=== PATIENT | female | born 1970 | race Caucasian/White ===

== ENCOUNTER 2016-11-11 08:06 | Day surgery (SDC) | payer MEDICAID ==
[2016-11-11] MEDS ORDERED: Lactated Ringers 1,000 ML IV SCH (08:15)
[2016-11-11] MEDS ORDERED: Sodium Chloride 0.9% 10 ML Syringe FLUSH PRN (08:15)
[2016-11-11] MEDS ORDERED: Lidocaine 2% 100 MG/5 ML Syringe IVPUSH ONE (09:50)
[2016-11-11] MEDS ORDERED: Propofol 200 MG/20 ML SDV IV ONE (09:50)
[2016-11-11] MEDS ORDERED: Midazolam 1 MG/ML 2 ML SDV IV ONE (09:50)
--- NOTE | 2016-11-11 10:27 | PCM.OPNOTE ---
- General Post-Op/Procedure Note Date of Surgery/Procedure: 11/11/16 Operative Procedure(s): egd with bx. c scope Findings: anastomtic ullcer Pre Op Diagnosis: abd pain Post-Op Diagnosis: nl c scope. anastomotic ulcer s/p gastric bypass Anesthesia Technique: MAC Primary Surgeon: Cody Pacheco Anesthesia Provider: Juve Lowery Stump Pathology: ulcer edge Complications: None Condition: Good Free Text/Narrative:: see dictation
[2016-11-11 11:30] VITALS: BP 118/81
--- NOTE | 2016-11-11 15:22 | OR ---
DATE OF OPERATION: 11/11/2016 SURGEON: Cody Pacheco MD PROCEDURE PERFORMED: EGD with cold forceps biopsy and colonoscopy. PREOPERATIVE DIAGNOSIS: Generalized abdominal pain. POSTOPERATIVE DIAGNOSIS: Ulceration on the margin of the gastric pouch with the jejunum. Normal colonoscopy. INDICATIONS FOR PROCEDURE: This is a 46-year-old white female who presents with some complaints of abdominal pain. CT scan was essentially unremarkable. She was offered and accepted EGD and colonoscope. DESCRIPTION OF PROCEDURE: After an excellent IV sedation was administered, the bite block was inserted. The flexible endoscope was passed without difficulty down the patient's esophagus and into the gastric pouch. The scope was then advanced down the Tree limb. The following findings were noted. The limb itself was essentially unremarkable. Along the anastomosis of the pouch, there were some areas of what appeared to be ulceration, and these were biopsied. The gastric pouch, though large, was essentially unremarkable. The esophagus was unremarkable. The gastric pouch was deflated and scope was removed. Our attention was then turned to the colon. Digital rectal exam was performed. No marked abnormality was noted. Flexible colonoscope was inserted and advanced to the cecum without difficulty. The prep was excellent. The following findings were noted. Ascending colon, unremarkable. Transverse colon, unremarkable. Descending colon, unremarkable. Sigmoid and rectum, unremarkable. Colon was deflated as the scope was removed. The patient tolerated the procedure well and was taken to recovery room in good condition. /[id number] /JESL
== END 2016-11-11 11:14 | disposition home or self-care (01) ==
LOC: FB.SDS 08:06
PROVIDERS: ATTEND Surgery
DX: K29.00 Acute gastritis without bleeding (principal); K29.50 Unspecified chronic gastritis without bleeding; E03.9 Hypothyroidism, unspecified; E66.01 Morbid (severe) obesity due to excess calories; F32.9 Major depressive disorder, single episode, unspecified; D62 Acute posthemorrhagic anemia; Z98.84 Bariatric surgery status; Z90.710 Acquired absence of both cervix and uterus; Z79.899 Other long term (current) drug therapy; Z90.49 Acquired absence of other specified parts of digestive tract; Z98.890 Other specified postprocedural states; Z87.891 Personal history of nicotine dependence
CPT/HCPCS: 43239; 45378; 88305; 88342; J2250; J2704; J7120

== ENCOUNTER 2017-02-16 07:37 | Inpatient (IN) | payer MEDICAID ==
[2017-02-16] MEDS: Lactated Ringers 1,000 ML IV SCH ×2 (08:51→16:17)
[2017-02-16] MEDS ORDERED: cefOXitin 2 GM in Sodium Chloride 0.9% 100 ML IV ONE (09:00)
[2017-02-16] MEDS ORDERED: Glycopyrrolate 0.2 MG/ML 5 ML MDV IV ONE (09:30)
[2017-02-16] MEDS ORDERED: Propofol 200 MG/20 ML SDV IV ONE (09:30)
[2017-02-16] MEDS ORDERED: Midazolam 1 MG/ML 2 ML SDV IV ONE (09:30)
[2017-02-16] MEDS ORDERED: Ketorolac 30 MG/ML SDV IVPUSH ONE (09:30)
[2017-02-16] MEDS ORDERED: Lactated Ringers 1,000 ML IV ONE (09:30)
[2017-02-16] MEDS ORDERED: hydrOXYzine HCl 50 MG/ML SDV IM ONE (09:30)
[2017-02-16] MEDS ORDERED: diphenhydrAMINE 50 MG/ML SDV IV ONE (09:30)
[2017-02-16] MEDS ORDERED: Rocuronium 50 MG/5 ML Vial IV ONE (09:30)
[2017-02-16] MEDS ORDERED: fentaNYL 100 MCG/2 ML SDV IV ONE (09:30)
[2017-02-16] MEDS ORDERED: Succinylcholine 200 MG/10 ML MDV IV ONE (09:30)
[2017-02-16] MEDS ORDERED: Morphine 10 MG/ML Syringe IVPUSH ONE (09:30)
[2017-02-16] MEDS ORDERED: Neostigmine Methylsulfate 10 MG/10 ML MDV IVPUSH ONE (09:30)
[2017-02-16] MEDS ORDERED: ePHEDrine 50 MG/ML SDV IV ONE (09:30)
[2017-02-16] MEDS ORDERED: Dexamethasone 4 MG/ML 5 ML MDV IVPUSH ONE (09:30)
[2017-02-16] MEDS ORDERED: Ondansetron 4 MG/2 ML SDV IVPUSH ONE (09:30)
[2017-02-16] MEDS ORDERED: Albuterol 8 GM Inhaler INH ONE (09:30)
[2017-02-16] MEDS ORDERED: Bupivacaine 0.5% 30 ML SDV INJECT ONE (09:51)
[2017-02-16] MEDS ORDERED: Lidocaine 1% with EPINEPHrine 1:100,000 20 ML MDV INJECT ONE (09:51)
[2017-02-16] MEDS ORDERED: Ondansetron 4 MG/2 ML SDV IVPUSH PRN (12:12)
--- NOTE | 2017-02-16 12:23 | PCM.OPNOTE ---
- General Post-Op/Procedure Note Date of Surgery/Procedure: 02/16/17 Operative Procedure(s): lap cholecystectomy with conversion to open Findings: gallbladder remanent. flow of dye into the biliary tree. Pre Op Diagnosis: gallstones gallbladder remanent Post-Op Diagnosis: Same Anesthesia Technique: General ET Tube, Local (8 ml 1 % lido with epi/0.5% buvipicaine) Primary Surgeon: Cody Pacheco Anesthesia Provider: Ilana Pierce Pathology: gallbladder remnant EBL in mLs: 150 Complications: None Condition: Good Free Text/Narrative:: see dictation
[2017-02-16] MEDS ORDERED: Naloxone 0.4 MG/ML SDV IVPUSH PRN ×2 (12:26→12:32)
[2017-02-16] MEDS ORDERED: Promethazine 25 MG/ML SDV IV PRN (12:30)
[2017-02-16] MEDS: Morphine 2 MG/ML Syringe IVPUSH PRN ×2 (12:38→12:45)
[2017-02-16] MEDS: Morphine PF 30 MG/30 ML PCA Vial IV SCH ×2 (13:56→23:53)
--- NOTE | 2017-02-16 15:09 | CR ---
INDICATION: Laparoscopic cholecystectomy structure check. OPERATIVE CHOLANGIOGRAM: 2.5 minutes C-arm fluoroscopy time were utilized in OR for ORC. Nine C-arm fluoroscopic images of the common bile duct and intrahepatic ducts were obtained after injection of contrast in the cystic duct. There is noted flow into the duodenum. No definite filling defects are identified. IMPRESSION: ORC demonstrates dilated biliary tree and common bile duct with flow into the duodenum and no definite filling defects. Findings were given in OR to Dr. Pacheco in person. BETITO
--- NOTE | 2017-02-16 18:07 | PCM.SN ---
- Free Text/Narrative Note: Post op check no complaints. good pain control. hungry lungs cta heart rrr abd soft hypoactive bowel sounds. unremarkable exam dos.
[2017-02-17] MEDS: Lactated Ringers 1,000 ML IV SCH ×2 (00:14→08:23)
[2017-02-17] MEDS: Morphine PF 30 MG/30 ML PCA Vial IV SCH ×2 (10:48→21:04)
--- NOTE | 2017-02-17 11:38 | PCM.SURGPN ---
- General Info Date of Service: 02/17/17 POD#: 1 Functional Status: Reports: Pain Controlled - Review of Systems Pulmonary: Reports: No Symptoms Cardiovascular: Reports: No Symptoms Gastrointestinal: Reports: Abdominal Pain - Patient Data Vitals - Most Recent: Last Vital Signs Temp 36.4 C 02/17/17 07:47 Pulse 61 02/17/17 07:47 Resp 18 02/17/17 07:47 BP 98/68 02/17/17 07:47 Pulse Ox 98 02/17/17 07:47 Weight - Most Recent: 91.172 kg I&O - Last 24 Hours: Intake & Output 02/16/17 02/17/17 02/17/17 22:59 06:59 14:59 Intake Total 1044 Output Total 700 450 Balance 344 -450 Lab Results Last 24 Hrs: Laboratory Results - last 24 hr 02/17/17 02/17/17 Range/Units 06:25 06:25 WBC 11.7 (4.5-12.0) X10-3/uL RBC 4.64 (3.23-5.20) x10(6)uL Hgb 11.9 (11.5-15.5) g/dL Hct 36.7 (30.0-51.3) % MCV 79.0 L (80-96) fL MCH 25.6 L (27.7-33.6) pg MCHC 32.4 (32.2-35.4) g/dL RDW 23.7 H (11.5-15.5) % Plt Count 197 (125-369) X10(3)uL MPV 10.0 (7.4-10.4) fL Neut % (Auto) 74.7 (46-82) % Lymph % (Auto) 14.1 (13-37) % [place] % (Auto) 7.6 (4-12) % Eos % (Auto) 1 (1.0-5.0) % Baso % (Auto) 3 H (0-2) % Neut # (Auto) 8.7 H (1.6-8.3) # Lymph # (Auto) 1.7 (0.6-5.0) # [place] # (Auto) 0.9 (0.0-1.3) # Eos # (Auto) 0.1 (0.0-0.8) # Baso # (Auto) 0.3 H (0.0-0.2) # Sodium 139 (135-145) mmol/L Potassium 3.7 (3.5-5.3) mmol/L Chloride 107 (100-110) mmol/L Carbon Dioxide 26 (23-29) mmol/L BUN 8 (5-20) mg/dL Creatinine 0.5 L (0.6-1.3) mg/dL Est Cr Clr Drug Dosing 204.50 mL/min Estimated GFR (MDRD) > 60 (>60) BUN/Creatinine Ratio 16.0 (9-20) Glucose 100 (80-116) mg/dL Calcium 8.4 L (8.6-10.2) mg/dL Total Bilirubin 0.5 (0.1-1.3) mg/dL AST 67 H (5-27) IU/L ALT 61 H (14-26) IU/L Alkaline Phosphatase 44 L (56-112) IU/L Total Protein 6.3 (6.0-8.0) g/dL Albumin 3.2 L (3.5-5.2) g/dL Globulin 3.1 g/dL Albumin/Globulin Ratio 1.0 Med Orders - Current: Current Medications Lactated Ringer's (Ringers, Lactated) 1,000 mls @ 125 mls/hr IV ASDIRECTED [facility] Last Admin: 02/17/17 08:23 Dose: 125 mls/hr Morphine Sulfate (Morphine Commercial Fisherman 30 Mg In 30 Ml) 30 mg IV ASDIRECTED [facility] PRN Reason: Protocol Last Admin: 02/17/17 10:48 Dose: 30 mg Naloxone HCl (Narcan) 0.4 mg IVPUSH Q2M PRN PRN Reason: Respiratory Distress Ondansetron HCl (Zofran) 4 mg IVPUSH Q6H PRN PRN Reason: Nausea/Vomiting Discontinued Medications Albuterol (Ventolin Hfa) 8 gm INH .STK-MED ONE Stop: 02/16/17 09:31 Bupivacaine HCl (Marcaine 0.5%) 8 ml INJECT .STK-MED ONE Stop: 02/16/17 09:52 Last Admin: 02/16/17 09:51 Dose: 8 ml Dexamethasone (Dexamethasone) 10 mg IVPUSH .STK-MED ONE Stop: 02/16/17 09:31 Diphenhydramine HCl (Benadryl) 12.5 mg IV .STK-MED ONE Stop: 02/16/17 09:31 Ephedrine Sulfate (Ephedrine Sulfate) 30 mg IV .STK-MED ONE Stop: 02/16/17 09:31 Fentanyl (Sublimaze) 300 mcg IV .STK-MED ONE Stop: 02/16/17 09:31 Glycopyrrolate (Robinul) 0.4 mg IV .STK-MED ONE Stop: 02/16/17 09:31 Hydroxyzine HCl (Vistaril) 50 mg IM .STK-MED ONE Stop: 02/16/17 09:31 Cefoxitin Sodium 2 gm/ Sodium (Chloride) 100 mls @ 200 mls/hr IV ONETIME ONE Stop: 02/16/17 09:29 Last Admin: 02/16/17 08:55 Dose: 200 mls/hr Lactated Ringer's (Ringers, Lactated) 1,000 mls @ as directed IV .STK-MED ONE Stop: 02/16/17 09:31 Ketorolac Tromethamine (Toradol) 30 mg IVPUSH .STK-MED ONE Stop: 02/16/17 09:31 Lidocaine/Epinephrine (Xylocaine 1% With Epinephrine 1:100,000) 8 ml INJECT .STK-MED ONE Stop: 02/16/17 09:52 Last Admin: 02/16/17 09:51 Dose: 8 ml Midazolam HCl (Versed 1 Mg/Ml) 4 mg IV .STK-MED ONE Stop: 02/16/17 09:31 Morphine Sulfate (Morphine) 2 mg IVPUSH Q3M PRN PRN Reason: Abdominal Pain Last Admin: 02/16/17 12:45 Dose: 2 mg Morphine Sulfate (Morphine) 10 mg IVPUSH .STK-MED ONE Stop: 02/16/17 09:31 Neostigmine Methylsulfate (Neostigmine Methylsulfate) 3 mg IVPUSH .STK-MED ONE Stop: 02/16/17 09:31 Ondansetron HCl (Zofran) 4 mg IVPUSH .STK-MED ONE Stop: 02/16/17 09:31 Promethazine HCl (Phenergan) 12.5 mg IV Q4H PRN PRN Reason: Nausea/Vomiting Propofol (Diprivan 20 Ml) 200 mg IV .STK-MED ONE Stop: 02/16/17 09:31 Rocuronium [place] (Zemuron) 90 mg IV .STK-MED ONE Stop: 02/16/17 09:31 Succinylcholine Chloride (Quelicin) 100 mg IV .STK-MED ONE Stop: 02/16/17 09:31 - Exam Wound/Incisions: Dressing Dry and Intact Lungs: Clear to Auscultation, Normal Respiratory Effort Cardiovascular: Regular Rate, Regular Rhythm GI/Abdominal Exam: Normal Bowel Sounds, Soft, Tender - Problem List & Annotations (1) S/P cholecystectomy SNOMED Code(s): 481227591, 184128536 Code(s): Z90.49 - ACQUIRED ABSENCE OF OTHER SPECIFIED PARTS OF DIGESTIVE TRACT Status: Acute Current Visit: Yes - Problem List Review Problem List Initiated/Reviewed/Updated: Yes - My Orders Last 24 Hours: Active Orders 24 hr Category Date Time Status Ambulate [RC] Q4HPRN Care 02/16/17 12:13 Active Cardiac Monitoring [RC] 08,16,00 Care 02/16/17 12:32 Active Communication Order [RC] STAT Care 02/16/17 12:32 Active Insert [place]imes Catheter [Insert Urinary Catheter] [OM.PC] Care 02/16/17 18:45 Ordered Q24H Intake and Output [RC] ,,22 Care 02/16/17 12:13 Active Notify Provider Intake and Out [RC] ,, Care 02/16/17 12:13 Active Notify Provider Vital Signs [RC] PRN Care 02/16/17 12:13 Active Notify Provider [RC] PRN Care 02/16/17 12:32 Active Oxygen Therapy [RC] PRN Care 02/16/17 12:12 Active CHAIN MACHINE OPERATOR Record [RC] ,14,22 Care 02/16/17 12:32 Active Pulse Oximetry [RC] CONTINUOUS Care 02/16/17 12:32 Active RT Incentive Spirometry [RC] Q2HWA Care 02/16/17 12:12 Active Urinary Catheter Assessment [RC] QSHIFT Care 02/16/17 18:39 Active Vital Signs [RC] 08,12,16,20,00,04 Care 02/16/17 12:12 Active Morphine PF [Morphine CHAIN MACHINE OPERATOR 30 MG in 30 ML] Med 02/16/17 12:15 Active 30 mg IV ASDIRECTED Naloxone [Narcan] Med 02/16/17 12:32 Active 0.4 mg IVPUSH Q2M PRN Ondansetron [Zofran] Med 02/16/17 12:12 Active 4 mg IVPUSH Q6H PRN Medication Discontinuation Instructions [OM.PC] Stat Oth 02/16/17 12:26 Ordered Medication Discontinuation Instructions [OM.PC] Stat Ot 02/16/17 12:32 Ordered Medication Orders Lactated Ringer's (Ringers, Lactated) 1,000 mls @ 125 mls/hr IV ASDIRECTED [facility] Last Admin: 02/17/17 08:23 Dose: 125 mls/hr Infusion: 02/17/17 08:14 Dose: 125 mls/hr Admin: 02/17/17 00:14 Dose: 125 mls/hr Infusion: 02/17/17 00:14 Dose: 125 mls/hr Admin: 02/16/17 16:17 Dose: 125 mls/hr Infusion: 02/16/17 16:17 Dose: 125 mls/hr Admin: 02/16/17 08:51 Dose: 125 mls/hr Morphine Sulfate (Morphine Commercial Fisherman 30 Mg In 30 Ml) 30 mg IV ASDIRECTED [facility] PRN Reason: Protocol Last Admin: 02/17/17 10:48 Dose: 30 mg Admin: 02/16/17 23:53 Dose: 30 mg Admin: 02/16/17 13:56 Dose: 30 mg Naloxone HCl (Narcan) 0.4 mg IVPUSH Q2M PRN PRN Reason: Respiratory Distress Ondansetron HCl (Zofran) 4 mg IVPUSH Q6H PRN PRN Reason: Nausea/Vomiting - Assessment Assessment (Free Text/Narrative):: pod #1 - Plan Plan (Free Text/Narrative):: will d/c tele clear liquid diet d/c foleyl
[2017-02-17] MEDS ORDERED: CLINDAMYCIN PHOSPHATE TOP SCH (17:00)
[2017-02-17] MEDS: Sucralfate 1 GM Tab PO SCH ×2 (17:38→20:41)
[2017-02-17] MEDS: LORazepam 0.5 MG Tab PO SCH (20:41)
[2017-02-18] MEDS: Lactated Ringers 1,000 ML IV SCH (00:05)
[2017-02-18] MEDS ORDERED: Pantoprazole 40 MG Tab.CR PO SCH (07:30)
[2017-02-18] MEDS ORDERED: Levothyroxine 150 MCG Tab PO SCH (07:30)
[2017-02-18] MEDS ORDERED: Cyanocobalamin (Vitamin B12) 1,000 MCG Tab PO SCH (09:00)
[2017-02-18] MEDS ORDERED: Fluconazole 150 MG Tab PO SCH (09:00)
[2017-02-18] MEDS: Loratadine 10 MG Tab PO SCH (09:19)
[2017-02-18] MEDS: Sucralfate 1 GM Tab PO SCH ×4 (09:19→20:27)
[2017-02-18] MEDS: Sertraline 100 MG Tab PO SCH (09:20)
--- NOTE | 2017-02-18 09:39 | PCM.SURGPN ---
- General Info Date of Service: 02/18/17 POD#: 2 Functional Status: Reports: Pain Controlled, Tolerating Diet, Ambulating, Urinating - Review of Systems HEENT: Reports: No Symptoms Pulmonary: Reports: No Symptoms Cardiovascular: Reports: No Symptoms Gastrointestinal: Reports: Abdominal Pain, Flatus - Patient Data Vitals - Most Recent: Last Vital Signs Temp 36.8 C 02/18/17 07:59 Pulse 53 L 02/18/17 07:59 Resp 18 02/18/17 07:59 BP 116/74 02/18/17 07:59 Pulse Ox 93 L 02/18/17 07:59 Weight - Most Recent: 91.172 kg I&O - Last 24 Hours: Intake & Output 02/17/17 02/18/17 02/18/17 22:59 06:59 14:59 Intake Total 521 673 Output Total 800 850 Balance -279 -177 Med Orders - Current: Current Medications Cyanocobalamin (Vitamin B12) 1,000 mcg PO DAILY [facility] Ergocalciferol (Vitamin D2) 50,000 units PO Mo [facility] Hydroxyzine Pamoate (Vistaril) 50 mg PO BID PRN PRN Reason: ITCHING Lactated Ringer's (Ringers, Lactated) 1,000 mls @ 50 mls/hr IV ASDIRECTED [facility] Last Admin: 02/18/17 00:05 Dose: 50 mls/hr Levothyroxine Sodium (Levothyroxine) 150 mcg PO DAILY@0600 [facility] Loratadine (Claritin) 10 mg PO DAILY [facility] Last Admin: 02/18/17 09:19 Dose: 10 mg Lorazepam (Ativan) 0.5 mg PO BEDTIME [facility] Last Admin: 02/17/17 20:41 Dose: 0.5 mg Morphine Sulfate (Morphine Dental Nurse 30 Mg In 30 Ml) 30 mg IV ASDIRECTED [facility] PRN Reason: Protocol Last Admin: 02/17/17 21:04 Dose: 30 mg Naloxone HCl (Narcan) 0.4 mg IVPUSH Q2M PRN PRN Reason: Respiratory Distress Ondansetron HCl (Zofran) 4 mg IVPUSH Q6H PRN PRN Reason: Nausea/Vomiting Pantoprazole Sodium (Protonix) 40 mg PO DAILY@0600 [facility] Sertraline HCl (Zoloft) 100 mg PO DAILY [facility] Last Admin: 02/18/17 09:20 Dose: 100 mg Sucralfate (Carafate) 1 gm PO QIDACANDBED [facility] Last Admin: 02/18/17 09:19 Dose: 1 gm Discontinued Medications Albuterol (Ventolin Hfa) 8 gm INH .STK-MED ONE Stop: 02/16/17 09:31 Bupivacaine HCl (Marcaine 0.5%) 8 ml INJECT .STK-MED ONE Stop: 02/16/17 09:52 Last Admin: 02/16/17 09:51 Dose: 8 ml Dexamethasone (Dexamethasone) 10 mg IVPUSH .STK-MED ONE Stop: 02/16/17 09:31 Diphenhydramine HCl (Benadryl) 12.5 mg IV .STK-MED ONE Stop: 02/16/17 09:31 Ephedrine Sulfate (Ephedrine Sulfate) 30 mg IV .STK-MED ONE Stop: 02/16/17 09:31 Fentanyl (Sublimaze) 300 mcg IV .STK-MED ONE Stop: 02/16/17 09:31 Fluconazole (Diflucan) 150 mg PO DAILY [facility] Glycopyrrolate (Robinul) 0.4 mg IV .STK-MED ONE Stop: 02/16/17 09:31 Hydroxyzine HCl (Vistaril) 50 mg IM .STK-MED ONE Stop: 02/16/17 09:31 Hydroxyzine Pamoate (Vistaril) 50 mg PO Q6H [facility] Last Admin: 02/18/17 04:21 Dose: 50 mg Cefoxitin Sodium 2 gm/ Sodium (Chloride) 100 mls @ 200 mls/hr IV ONETIME ONE Stop: 02/16/17 09:29 Last Admin: 02/16/17 08:55 Dose: 200 mls/hr Lactated Ringer's (Ringers, Lactated) 1,000 mls @ as directed IV .STK-MED ONE Stop: 02/16/17 09:31 Ketorolac Tromethamine (Toradol) 30 mg IVPUSH .STK-MED ONE Stop: 02/16/17 09:31 Levothyroxine Sodium (Levothyroxine) 150 mcg PO ACBREAKFAST [facility] Last Admin: 02/18/17 07:31 Dose: 150 mcg Lidocaine/Epinephrine (Xylocaine 1% With Epinephrine 1:100,000) 8 ml INJECT .STK-MED ONE Stop: 02/16/17 09:52 Last Admin: 02/16/17 09:51 Dose: 8 ml Midazolam HCl (Versed 1 Mg/Ml) 4 mg IV .STK-MED ONE Stop: 02/16/17 09:31 Morphine Sulfate (Morphine) 2 mg IVPUSH Q3M PRN PRN Reason: Abdominal Pain Last Admin: 02/16/17 12:45 Dose: 2 mg Morphine Sulfate (Morphine) 10 mg IVPUSH .STK-MED ONE Stop: 02/16/17 09:31 Neostigmine Methylsulfate (Neostigmine Methylsulfate) 3 mg IVPUSH .STK-MED ONE Stop: 02/16/17 09:31 Non-Formulary Medication (Clindamycin Phosphate [Cleocin T 1% Gel]) 1 applic TOP ASDIRECTED [facility] Ondansetron HCl (Zofran) 4 mg IVPUSH .STK-MED ONE Stop: 02/16/17 09:31 Pantoprazole Sodium (Protonix) 40 mg PO ACBREAKFAST [facility] Last Admin: 02/18/17 07:31 Dose: 40 mg Promethazine HCl (Phenergan) 12.5 mg IV Q4H PRN PRN Reason: Nausea/Vomiting Propofol (Diprivan 20 Ml) 200 mg IV .STK-MED ONE Stop: 02/16/17 09:31 Rocuronium [place] (Zemuron) 90 mg IV .STK-MED ONE Stop: 02/16/17 09:31 Succinylcholine Chloride (Quelicin) 100 mg IV .STK-MED ONE Stop: 02/16/17 09:31 Sucralfate (Carafate) 1 gm PO QID [facility] Last Admin: 02/17/17 20:41 Dose: 1 gm - Exam Wound/Incisions: Healing Well, Dressing Dry and Intact, No Drainage. No: Erythema General: Alert, Oriented Lungs: Clear to Auscultation, Normal Respiratory Effort Cardiovascular: Regular Rate, Regular Rhythm GI/Abdominal Exam: Normal Bowel Sounds, Soft, Non-Tender Skin: Warm, Dry, Intact - Problem List & Annotations (1) S/P cholecystectomy SNOMED Code(s): 593231090, [id number] Code(s): Z90.49 - ACQUIRED ABSENCE OF OTHER SPECIFIED PARTS OF DIGESTIVE TRACT Status: Acute Current Visit: Yes - Problem List Review Problem List Initiated/Reviewed/Updated: Yes - My Orders Last 24 Hours: Active Orders 24 hr Category Date Time Status Full Liquid Diet [DIET] Diet 02/17/17 Dinner Active VITAMIN B12 [CHEM] Routine Lab 02/18/17 09:27 Received Cyanocobalamin (Vitamin B12) [Vitamin B12] Med 02/18/17 09:00 Hold 1,000 mcg PO DAILY Ergocalciferol (Vitamin D2) [Vitamin D2] Med 02/20/17 09:00 Active 50,000 units PO Mo LORazepam [Ativan] Med 02/17/17 21:00 Active 0.5 mg PO BEDTIME Levothyroxine Med 02/19/17 06:00 Active 150 mcg PO DAILY@0600 Loratadine [Claritin] Med 02/18/17 09:00 Active 10 mg PO DAILY Pantoprazole [ProTONIX] Med 02/19/17 06:00 Active 40 mg PO DAILY@0600 Sertraline [Zoloft] Med 02/18/17 09:00 Active 100 mg PO DAILY Sucralfate [Carafate] Med 02/18/17 08:20 Active 1 gm PO QIDACANDBED hydrOXYzine Pamoate [Vistaril] Med 02/18/17 09:22 Active 50 mg PO BID PRN Medication Orders Cyanocobalamin (Vitamin B12) 1,000 mcg PO DAILY [facility] Ergocalciferol (Vitamin D2) 50,000 units PO Mo [facility] Hydroxyzine Pamoate (Vistaril) 50 mg PO BID PRN PRN Reason: ITCHING Lactated Ringer's (Ringers, Lactated) 1,000 mls @ 50 mls/hr IV ASDIRECTED [facility] Last Admin: 02/18/17 00:05 Dose: 50 mls/hr Infusion: 02/17/17 22:58 Dose: 50 mls/hr Infusion: 02/17/17 12:00 Dose: 50 mls/hr Admin: 02/17/17 08:23 Dose: 125 mls/hr Infusion: 02/17/17 08:14 Dose: 125 mls/hr Admin: 02/17/17 00:14 Dose: 125 mls/hr Infusion: 02/17/17 00:14 Dose: 125 mls/hr Admin: 02/16/17 16:17 Dose: 125 mls/hr Infusion: 02/16/17 16:17 Dose: 125 mls/hr Admin: 02/16/17 08:51 Dose: 125 mls/hr Levothyroxine Sodium (Levothyroxine) 150 mcg PO DAILY@0600 [facility] Loratadine (Claritin) 10 mg PO DAILY [facility] Last Admin: 02/18/17 09:19 Dose: 10 mg Lorazepam (Ativan) 0.5 mg PO BEDTIME [facility] Last Admin: 02/17/17 20:41 Dose: 0.5 mg Morphine Sulfate (Morphine Dental Nurse 30 Mg In 30 Ml) 30 mg IV ASDIRECTED [facility] PRN Reason: Protocol Last Admin: 02/17/17 21:04 Dose: 30 mg Admin: 02/17/17 10:48 Dose: 30 mg Admin: 02/16/17 23:53 Dose: 30 mg Admin: 02/16/17 13:56 Dose: 30 mg Naloxone HCl (Narcan) 0.4 mg IVPUSH Q2M PRN PRN Reason: Respiratory Distress Ondansetron HCl (Zofran) 4 mg IVPUSH Q6H PRN PRN Reason: Nausea/Vomiting Pantoprazole Sodium (Protonix) 40 mg PO DAILY@0600 [facility] Sertraline HCl (Zoloft) 100 mg PO DAILY [facility] Last Admin: 02/18/17 09:20 Dose: 100 mg Sucralfate (Carafate) 1 gm PO QIDACANDBED [facility] Last Admin: 02/18/17 09:19 Dose: 1 gm - Assessment Assessment (Free Text/Narrative):: unremarkable post op exam - Plan Plan (Free Text/Narrative):: 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
[2017-02-18] MEDS: Acetaminophen/HYDROcodone 325-5 MG Tab PO PRN ×3 (11:00→20:54)
[2017-02-18] MEDS: LORazepam 0.5 MG Tab PO SCH (20:27)
[2017-02-19] MEDS: Acetaminophen/HYDROcodone 325-5 MG Tab PO PRN ×3 (01:08→10:16)
[2017-02-19] MEDS ORDERED: Levothyroxine 150 MCG Tab PO SCH (06:00)
[2017-02-19] MEDS ORDERED: Pantoprazole 40 MG Tab.CR PO SCH (06:00)
[2017-02-19] MEDS: Sucralfate 1 GM Tab PO SCH (07:34)
[2017-02-19] MEDS ORDERED: Bisacodyl 10 MG Supp RECTAL ONE (09:08)
--- NOTE | 2017-02-19 09:18 | PCM.DCSUM1 ---
Discharge Summary - Hospital Course Free Text/Narrative:: Pt admitted. Converted to open cholecystectomy due to IOC findings. Remnant removed without difficulty. Admitted for pain control. Started on a clear liquid diet by day 2, this was advanced. Converted to po pain medication which appears to be controlling her pain. Is ready for discharge on POD #4 - Discharge Data Discharge Date: 02/19/17 Discharge Disposition: Home, Self-Care 01 Condition: Good - Discharge Diagnosis/Problem(s) (1) S/P cholecystectomy SNOMED Code(s): 219039616, [id number] ICD Code: Z90.49 - ACQUIRED ABSENCE OF OTHER SPECIFIED PARTS OF DIGESTIVE TRACT Status: Acute Current Visit: Yes - Patient Summary/Data Operative Procedure(s) Performed: lap cholecystectomy with conversion to open - Patient Instructions Diet: Usual Diet as Tolerated, No Alcoholic Beverages Activity: No Strenuous Activities, Rest and Relax Today Driving: Do Not Drive (for 7 days ) Showering/Bathing: May Shower Notify Provider of: Fever, Swelling and Redness, Drainage - Discharge Plan Prescriptions/Med Rec: Acetaminophen/HYDROcodone [[place] 325-5 MG] 1 tab PO Q4H PRN #30 tablet PRN Reason: Pain Home Medications: Home Meds Cyanocobalamin (Vitamin B-12) [Vitamin B-12] 1,000 mcg PO DAILY 10/01/14 [ History] Ergocalciferol (Vitamin D2) [Vitamin D2] 50,000 unit PO MO 10/01/14 [History] Loratadine [Claritin] 10 mg PO DAILY 10/01/14 [History] Sertraline HCl 100 mg PO DAILY 10/01/14 [History] Levothyroxine 150 mcg PO ACBREAKFAST 11/10/16 [History] hydrOXYzine Pamoate [Vistaril] 50 mg PO BID PRN 11/10/16 [History] Clindamycin Phosphate [Cleocin T 1% Gel] 1 applic TOP BEDTIME 02/15/17 [History] LORazepam [Ativan] 0.5 mg PO BEDTIME 02/15/17 [History] Mupirocin Oint [Bactroban Oint] 1 applic TOP BID PRN 02/15/17 [History] Omeprazole 40 mg PO DAILY 02/15/17 [History] Sucralfate 1 gm PO QIDACANDBED 02/15/17 [History] Acetaminophen/HYDROcodone [[place] 325-5 MG] 1 tab PO Q4H PRN #30 tablet 02/19/17 [Rx] Patient Handouts: Open Cholecystectomy, Care After, Venous Thromboembolism Prevention Referrals: Cody Pacheco MD [Physician] - 02/24/17 - Discharge Summary/Plan Comment DC Time >30 min.: No - General Info Functional Status: Reports: Pain Controlled, Tolerating Diet, Ambulating, Urinating - Review of Systems HEENT: Reports: No Symptoms Pulmonary: Reports: No Symptoms Cardiovascular: Reports: No Symptoms Gastrointestinal: Reports: No Symptoms - Patient Data Vitals - Most Recent: Last Vital Signs Temp 36.5 C 02/19/17 05:00 Pulse 63 02/19/17 05:00 Resp 16 02/19/17 05:00 BP 104/65 02/19/17 05:00 Pulse Ox 94 L 02/19/17 05:00 Weight - Most Recent: 91.172 kg I&O - Last 24 hours: Intake & Output 02/18/17 02/19/17 02/19/17 22:59 06:59 14:59 Intake Total 475 550 Output Total 1150 1100 Balance -675 -550 Lab Results - Last 24 hrs: Laboratory Results - last 24 hr 02/18/17 Range/Units 09:27 Vitamin B12 582.0 (211-911) pg/mL Med Orders - Current: Current Medications Hydrocodone Bitart/Acetaminophen ([place] 325-5 Mg) 1 tab PO Q4H PRN PRN Reason: Pain Last Admin: 02/19/17 05:12 Dose: 1 tab Cyanocobalamin (Vitamin B12) 1,000 mcg PO DAILY [facility] Ergocalciferol (Vitamin D2) 50,000 units PO Mo [facility] Hydroxyzine Pamoate (Vistaril) 50 mg PO BID PRN PRN Reason: ITCHING Levothyroxine Sodium (Levothyroxine) 150 mcg PO DAILY@0600 [facility] Last Admin: 02/19/17 05:12 Dose: 150 mcg Loratadine (Claritin) 10 mg PO DAILY [facility] Last Admin: 02/18/17 09:19 Dose: 10 mg Lorazepam (Ativan) 0.5 mg PO BEDTIME [facility] Last Admin: 02/18/17 20:27 Dose: 0.5 mg Ondansetron HCl (Zofran) 4 mg IVPUSH Q6H PRN PRN Reason: Nausea/Vomiting Pantoprazole Sodium (Protonix) 40 mg PO DAILY@0600 [facility] Last Admin: 02/19/17 05:12 Dose: 40 mg Sertraline HCl (Zoloft) 100 mg PO DAILY [facility] Last Admin: 02/18/17 09:20 Dose: 100 mg Sucralfate (Carafate) 1 gm PO QIDACANDBED [facility] Last Admin: 02/19/17 07:34 Dose: 1 gm Discontinued Medications Albuterol (Ventolin Hfa) 8 gm INH .STK-MED ONE Stop: 02/16/17 09:31 Bisacodyl (Dulcolax) 10 mg RECTAL DAILY ONE Stop: 02/19/17 09:09 Bupivacaine HCl (Marcaine 0.5%) 8 ml INJECT .STK-MED ONE Stop: 02/16/17 09:52 Last Admin: 02/16/17 09:51 Dose: 8 ml Dexamethasone (Dexamethasone) 10 mg IVPUSH .STK-MED ONE Stop: 02/16/17 09:31 Diphenhydramine HCl (Benadryl) 12.5 mg IV .STK-MED ONE Stop: 02/16/17 09:31 Ephedrine Sulfate (Ephedrine Sulfate) 30 mg IV .STK-MED ONE Stop: 02/16/17 09:31 Fentanyl (Sublimaze) 300 mcg IV .STK-MED ONE Stop: 02/16/17 09:31 Fluconazole (Diflucan) 150 mg PO DAILY [facility] Glycopyrrolate (Robinul) 0.4 mg IV .STK-MED ONE Stop: 02/16/17 09:31 Hydroxyzine HCl (Vistaril) 50 mg IM .STK-MED ONE Stop: 02/16/17 09:31 Hydroxyzine Pamoate (Vistaril) 50 mg PO Q6H [facility] Last Admin: 02/18/17 04:21 Dose: 50 mg Lactated Ringer's (Ringers, Lactated) 1,000 mls @ 50 mls/hr IV ASDIRECTED [facility] Last Admin: 02/18/17 00:05 Dose: 50 mls/hr Cefoxitin Sodium 2 gm/ Sodium (Chloride) 100 mls @ 200 mls/hr IV ONETIME ONE Stop: 02/16/17 09:29 Last Admin: 02/16/17 08:55 Dose: 200 mls/hr Lactated Ringer's (Ringers, Lactated) 1,000 mls @ as directed IV .STK-MED ONE Stop: 02/16/17 09:31 Ketorolac Tromethamine (Toradol) 30 mg IVPUSH .STK-MED ONE Stop: 02/16/17 09:31 Levothyroxine Sodium (Levothyroxine) 150 mcg PO ACBREAKFAST [facility] Last Admin: 02/18/17 07:31 Dose: 150 mcg Lidocaine/Epinephrine (Xylocaine 1% With Epinephrine 1:100,000) 8 ml INJECT .STK-MED ONE Stop: 02/16/17 09:52 Last Admin: 02/16/17 09:51 Dose: 8 ml Midazolam HCl (Versed 1 Mg/Ml) 4 mg IV .STK-MED ONE Stop: 02/16/17 09:31 Morphine Sulfate (Morphine Silver Cleaner 30 Mg In 30 Ml) 30 mg IV ASDIRECTED [facility] PRN Reason: Protocol Last Admin: 02/17/17 21:04 Dose: 30 mg Morphine Sulfate (Morphine) 2 mg IVPUSH Q3M PRN PRN Reason: Abdominal Pain Last Admin: 02/16/17 12:45 Dose: 2 mg Morphine Sulfate (Morphine) 10 mg IVPUSH .STK-MED ONE Stop: 02/16/17 09:31 Naloxone HCl (Narcan) 0.4 mg IVPUSH Q2M PRN PRN Reason: Respiratory Distress Neostigmine Methylsulfate (Neostigmine Methylsulfate) 3 mg IVPUSH .STK-MED ONE Stop: 02/16/17 09:31 Non-Formulary Medication (Clindamycin Phosphate [Cleocin T 1% Gel]) 1 applic TOP ASDIRECTED [facility] Ondansetron HCl (Zofran) 4 mg IVPUSH .STK-MED ONE Stop: 02/16/17 09:31 Pantoprazole Sodium (Protonix) 40 mg PO ACBREAKFAST [facility] Last Admin: 02/18/17 07:31 Dose: 40 mg Promethazine HCl (Phenergan) 12.5 mg IV Q4H PRN PRN Reason: Nausea/Vomiting Propofol (Diprivan 20 Ml) 200 mg IV .STK-MED ONE Stop: 02/16/17 09:31 Rocuronium [place] (Zemuron) 90 mg IV .STK-MED ONE Stop: 02/16/17 09:31 Succinylcholine Chloride (Quelicin) 100 mg IV .STK-MED ONE Stop: 02/16/17 09:31 Sucralfate (Carafate) 1 gm PO QID [facility] Last Admin: 02/17/17 20:41 Dose: 1 gm - Exam General: Reports: Alert, Oriented Lungs: Reports: Clear to Auscultation, Normal Respiratory Effort Cardiovascular: Reports: Regular Rate, Regular Rhythm GI/Abdominal Exam: Normal Bowel Sounds, Soft *Q Meaningful Use (DIS) - VTE *Q VTE Criteria *Q: - Stroke *Q Stroke Criteria *Q: - AMI *Q AMI Criteria *Q:
[2017-02-19] MEDS: Loratadine 10 MG Tab PO SCH (09:22)
[2017-02-19] MEDS: Sertraline 100 MG Tab PO SCH (09:22)
[2017-02-19 09:55] VITALS: BP 135/87
--- NOTE | 2017-02-19 11:46 | OR ---
DATE OF OPERATION: 02/16/2017 SURGEON: Cody Pacheco MD PROCEDURE PERFORMED: Open cholecystectomy with intraoperative cholangiogram, conversion from laparoscopic cholecystectomy. PREOPERATIVE DIAGNOSIS: Status post laparoscopic cholecystectomy with gallbladder remnant with stones. POSTOPERATIVE DIAGNOSIS: Status post laparoscopic cholecystectomy with gallbladder remnant with stones. INDICATIONS FOR PROCEDURE: This is a 46-year-old white female who has been having issues with abdominal pain. Subsequent workup demonstrated what appears to be a gallbladder remnant with stones. The patient is status post a laparoscopic cholecystectomy in [place] several years ago for pancreatitis. MRI revealed what appears to be a small gallbladder remnant with stones in this remnant. As her symptoms were consistent with biliary colic on some occasions, she was offered and accepted an attempted laparoscopic cholecystectomy with conversion to open if needed. INTRAOPERATIVE FINDINGS: 1. Gallbladder remnant was identified. 2. Final IOC demonstrated good flow of bile into the duodenum as well as the biliary tree. A total of 8 mL of 1:1 mixture of 1% lidocaine with epinephrine and 0.5% bupivacaine was used. DESCRIPTION OF OPERATION: After an excellent general anesthetic was administered via endotracheal tube, the patient was prepped and draped in the usual sterile manner. Local was introduced just below the patient's umbilicus. A vertical midline incision was then carried out and blunt dissection was carried out exposing the midline fascia. Two stay sutures of 0 Vicryl were placed on either side of the midline fascia, which was then elevated. An incision was made into the fascia. After digital palpation to ensure no adhesions, a 10.5 mm Ghanshyam trocar was inserted into the patient's abdomen. The abdomen was then insufflated to 15 mmHg pressure using carbon dioxide. Three 5- mm ports were placed by injecting more local on the skin, and these were all placed using a similar technique of local injection, stab incision through the skin and then insertion of the trocar. The trocars were placed at the anterior axillary line and midclavicular line below the right costal margin, and in the midline epigastrium. There were thankfully no adhesions. We were able to retract the liver and exposing the gallbladder remnant, which appeared to be half the size of the normal gallbladder. Careful blunt dissection was carried out exposing, what appeared to be, the cystic duct and cystic artery. We safely identified our structures. We attempted an intraoperative cholangiogram initially through the gallbladder itself, but we were unable to affect an affective seal. Therefore, a clip was placed at the base of the infundibulum. A small joellen was made in the cystic duct, and the cholangiocath was inserted via Angiocath into the abdominal cavity and then placed into the neck, which was then clipped into position. Intraoperative cholangiogram was obtained, which demonstrated good flow of bile into the common bile duct. However, given the appearance, we saw no evidence of a distal common bile duct. At this point, I elected to convert to open to ensure that we had not injured the common bile duct and that she had abnormal anatomy. Our trocars were removed as was our Angiocath. A Ja incision was made starting at the midline epigastrium below the right costal margin and carried out with a #10 scalpel blade. The underlying subcu fat was divided using electrocautery. The anterior fascia was incised with electrocautery, and the underlying muscle was divided using electrocautery. The inferior epigastric vessels were clamped and tied with 0 Vicryl ties. The posterior rectus sheath was grasped and then this was divided as well with electrocautery. The abdominal cavity was entered. The round ligament of the liver was clamped, divided, and tied with 0 Vicryl ties. Using the Bookwalter retractor, we retracted the intestines as well as the liver giving us good exposure. The gallbladder remnant was then grasped and using a top-down dissection, was carried out down to the cystic duct. The cystic artery was identified, clamped, and divided after clipping. It was apparent on this view that we did have a cystic duct and a common bile duct. I did dissect around the common bile duct and controlled that with a vessel loop, and the cystic duct was controlled also with a vessel loop. We shot an additional cholangiogram with the vessel loop around the common bile duct in an effort to get dye to reflux up into the biliary tree. This was not successful. Further dissection along the lines and freeing up the common bile duct farther into the direction of the pancreas was then carried out. A repeat dye study was then carried out as well. At this point, we got good flow of dye into the biliary tree and into the duodenum after removal of the vessel loop from the common bile duct. Dr. Ewing was kind enough to come in and confirm our findings of no retained stone. Having completed this, the cholangiocath was removed and 3 clips were applied to the cystic duct. The gallbladder remnant was then transected and passed off the field. The area was irrigated until clear. After assuring excellent hemostasis, the retractor was removed as well as the packing around it. After a count to demonstrate that all instruments and lap pads were out of the abdominal cavity, the posterior rectus sheath was closed with a running 0 Prolene. The area was irrigated again and the anterior rectus sheath was closed with a running 0 Prolene. Cisne were used to close the skin. The umbilical site was closed with a [id number] 0 Vicryl and the 2 stay sutures were tied to each other. The skin was closed with arnulfo as well. Needle, sponge, and instrument counts were reported as correct. The patient tolerated the procedure well and was taken to recovery room in a good condition. /[id number] /MODL
[2017-02-20] MEDS ORDERED: Ergocalciferol (Vitamin D2) 50,000 Unit Cap PO SCH (09:00)
== END 2017-02-19 10:53 | disposition home or self-care (01) | DRG 262 ==
LOC: FB.SDS 07:37 → FB.MS 12:20
PROVIDERS: ADMIT Surgery; ATTEND Surgery
PROC: 0FT40ZZ Resection of Gallbladder, Open Approach (ICD-10-PCS; principal; 2017-02-16)
PROC: 0FJ44ZZ Inspection of Gallbladder, Percutaneous Endoscopic Approach (ICD-10-PCS; 2017-02-16)
PROC: BF10YZZ Fluoroscopy of Bile Ducts using Other Contrast (ICD-10-PCS; 2017-02-16)
DX: K80.20 Calculus of gallbladder without cholecystitis without obstruction (principal); Z90.49 Acquired absence of other specified parts of digestive tract; F32.9 Major depressive disorder, single episode, unspecified; F41.9 Anxiety disorder, unspecified; E03.9 Hypothyroidism, unspecified; Z87.891 Personal history of nicotine dependence; Z98.84 Bariatric surgery status; Z98.0 Intestinal bypass and anastomosis status
CPT/HCPCS: 36415; 74300; 80053; 82607; 85025; 88304; A9270-GY; J0330; J0694; J1100; J1200; J1885; J2250; J2270; J2274; J2405; J2704; J2710; J3010; J3410; J7030; J7120

== ENCOUNTER 2017-04-02 14:32 | Emergency (ER) | payer MEDICAID ==
[2017-04-02] MEDS ORDERED: Doxycycline 100 MG Tab PO ONE (15:27)
[2017-04-02] MEDS ORDERED: Phenazopyridine 95 MG Tab PO ONE (15:27)
--- NOTE | 2017-04-02 15:33 | EDM.PDOC ---
ED HPI GENERAL MEDICAL PROBLEM - General Chief Complaint: Genitourinary Problem Stated Complaint: blood in urine Time Seen by Provider: 04/02/17 15:28 Source of Information: Reports: Patient History Limitations: Reports: No Limitations - History of Present Illness INITIAL COMMENTS - FREE TEXT/NARRATIVE: c/o dysuria x 3 today felt fine yesterday, to bed at 10:30 PM, awoke 6:30 AM and had severe burning with voids, urgency, blood on TP when pt wiped urethra has 2-3 UTIs yearly, last one 2-3m ago no f/c/d thinks she has a UTI had a hysterectomy and bladder suspension 2y ago, has helped incontinence some 4 vaginal deliveries, 3 pregnancies (one was twins) took amox x 1 at home this AM still RBC when wiped self in ED, few back and WBCs in urine suggest partially tx 'ed UTI vs possible interstitial cystitis, accordingly will tx with doxy for possible IC as well as pyridium suprapubic Pain Score (Numeric/FACES): 10 - Related Data Allergies Allergy/AdvReac Type Severity Reaction Status Date / Time No Known Allergies Allergy Verified 02/16/17 09:05 Home Meds: Home Meds Cyanocobalamin (Vitamin B-12) [Vitamin B-12] 1,000 mcg PO DAILY 10/01/14 [ History] Ergocalciferol (Vitamin D2) [Vitamin D2] 50,000 unit PO MO 10/01/14 [History] Loratadine [Claritin] 10 mg PO DAILY 10/01/14 [History] Sertraline HCl 100 mg PO DAILY 10/01/14 [History] Levothyroxine 150 mcg PO ACBREAKFAST 11/10/16 [History] hydrOXYzine Pamoate [Vistaril] 50 mg PO BID PRN 11/10/16 [History] Clindamycin Phosphate [Cleocin T 1% Gel] 1 applic TOP BEDTIME 02/15/17 [History] LORazepam [Ativan] 0.5 mg PO BEDTIME 02/15/17 [History] Mupirocin Oint [Bactroban Oint] 1 applic TOP BID PRN 02/15/17 [History] Omeprazole 40 mg PO DAILY 02/15/17 [History] Sucralfate 1 gm PO QIDACANDBED 02/15/17 [History] Acetaminophen/HYDROcodone [[place] 325-5 MG] 1 tab PO Q4H PRN #30 tablet 02/19/17 [Rx] Doxycycline [Vibramycin] 100 mg PO BID #13 cap 04/02/17 [Rx] Phenazopyridine [Pyridium] 100 mg PO TID #6 tab 04/02/17 [Rx] Past Medical History HEENT History: Reports: None, Glaucoma, Impaired Vision Other HEENT History: BORDERLINE GLAUCOMA: NOT ON MEDS. ASTIGMATISM, PRESBYOPIA , HYPEROPIA Cardiovascular History: Reports: Heart Murmur Respiratory History: Reports: None Gastrointestinal History: Reports: Cholelithiasis, GERD, Other (See Below) Other Gastrointestinal History: GASTROJEJUNAL ULCER Genitourinary History: Reports: Urinary Incontinence [employer] MEMBER History: Reports: Endometriosis, Musculoskeletal History: Reports: Arthritis, Fracture Other Musculoskeletal History: BILATERAL CARPAL TUNNEL SYNDROME Neurological History: Reports: None Psychiatric History: Reports: Anxiety Other Psychiatric History: INSOMNIA Endocrine/Metabolic History: Reports: Hypothyroidism, Obesity/BMI 30+, Vitamin D Deficiency Hematologic History: Reports: B12 Deficiency, Blood Transfusion(s) Immunologic History: Reports: None Oncologic (Cancer) History: Reports: None Dermatologic History: Reports: Other (See Below) Other Dermatologic History: CYSTS USES BACTROBAN AND CLOTRAMIZOLE - Infectious Disease History Infectious Disease History: Reports: Chicken Pox - Past Surgical History Head Surgeries/Procedures: Reports: None HEENT Surgical History: Reports: Oral Surgery, Tonsillectomy GI Surgical History: Reports: Cholecystectomy, EGD Other GI Surgeries/Procedures: GASTRIC BYPASS Female Surgical History: Reports: Hysterectomy, Other (See Below) Other Female Surgeries/Procedures: BLADDER SLING Endocrine Surgical History: Reports: None Neurological Surgical History: Reports: None Other Musculoskeletal Surgeries/Procedures:: SHOULDER SURGERY Dermatological Surgical History: Reports: Skin Biopsy Social & Family History - Family History Family Medical History: Noncontributory - Tobacco Use Smoking Status *Q: Never Smoker Years of Tobacco use: 30 Used Tobacco, but Quit: Yes Month Tobacco Last Used: 08/2016 Second Hand Smoke Exposure: No - Caffeine Use Caffeine Use: Reports: Coffee - Alcohol Use Days Per Week of Alcohol Use: 1 - Recreational Drug Use Recreational Drug Use: No Drug Use in Last 12 Months: No ED ROS GENERAL - Review of Systems Review Of Systems: See Below Constitutional: Reports: No Symptoms HEENT: Reports: No Symptoms Respiratory: Reports: No Symptoms Cardiovascular: Reports: No Symptoms Endocrine: Reports: No Symptoms GI/Abdominal: Reports: No Symptoms : Reports: Dysuria, Frequency Musculoskeletal: Reports: No Symptoms Skin: Reports: No Symptoms Neurological: Reports: No Symptoms Psychiatric: Reports: No Symptoms Hematologic/Lymphatic: Reports: No Symptoms Immunologic: Reports: No Symptoms ED EXAM, RENAL/ - Physical Exam Exam: See Below Exam Limited By: No Limitations General Appearance: Alert, WD/WN, No Apparent Distress Neck: Normal Inspection, Supple, Non-Tender Respiratory/Chest: No Respiratory Distress, Lungs Clear, Normal Breath Sounds Cardiovascular: Regular Rate, Rhythm, No Edema, No Rub GI/Abdominal: Normal Bowel Sounds, Soft, Other (slight tender in epigastrium) Back Exam: Normal Inspection, Full Range of Motion, NT Extremities: Normal Inspection, Normal Range of Motion, Non-Tender, No Pedal Edema Neurological: Alert, Oriented, CN II-XII Intact, Normal Cognition, No Motor/ Sensory Deficits Psychiatric: Normal Affect, Normal Mood Skin Exam: Warm, Dry, Intact, Normal Color, No Rash Lymphatic: No Adenopathy Course - Vital Signs Last Recorded V/S: Last Vital Signs Temp 36.6 C 04/02/17 15:00 Pulse 93 04/02/17 15:00 Resp 17 04/02/17 15:00 BP 120/79 04/02/17 15:00 Pulse Ox 99 04/02/17 15:00 - Orders/Labs/Meds Orders: Active Orders 24 hr Category Date Time Status Doxycycline [Vibramycin] Med 04/02/17 15:27 Once 100 mg PO ONETIME ONE Phenazopyridine [Urinary Pain Relief] Med 04/02/17 15:27 Once 95 mg PO TIDPC ONE Labs: Laboratory Tests 04/02/17 Range/Units 14:53 Urine Color Yellow (YELLOW) Urine Appearance Clear (CLEAR) Urine pH 5.0 (5.0-6.5) Ur Specific [place] 1.015 (1.010-1.025) Urine Protein Negative (NEGATIVE) mg/dL Urine Glucose (UA) Normal (NEGATIVE) mg/dL Urine Ketones Negative (NEGATIVE) mg/dL Urine Occult Blood Large H (NEGATIVE) Urine Nitrite Negative (NEGATIVE) Urine Bilirubin Negative (NEGATIVE) Urine Urobilinogen Normal (NEGATIVE) mg/dL Ur Leukocyte Esterase Moderate H (NEGATIVE) Urine RBC 20-30 H (0) Urine WBC 0-5 (0) Ur Squamous Epith Cells Moderate H (NS,R,O) Urine Bacteria Few H (NS) - Re-Assessments/Exams Free Text/Narrative Re-Assessment/Exam: 04/02/17 15:32 UTI by hx verónicao u/a is not confirmatory, has had chronic pain issues relative to choly x 2, "part of GB" left behind with 1st surgery, Dr Pacheco did 2nd GB surgery, pt has appointment in 3d with PCP Dr Orourke regarding chronic intermittent epigastric pain Departure - Departure Time of Disposition: 15:33 Disposition: Home, Self-Care 01 Condition: Good Clinical Impression: Urinary tract infection with hematuria - Discharge Information Prescriptions: Doxycycline [Vibramycin] 100 mg PO BID #13 cap Phenazopyridine [Pyridium] 100 mg PO TID #6 tab Referrals: Eliud Crawley MD [Primary Care Provider] - Additional Instructions: For infection, take doxycycline 100 mg 1 capsule 2 times a day for 7 days. For burning, take Pyridium 100 mg 1 tab 3 times a day for 2 days. Increase fluids. See Dr Orourke in 3 days as scheduled. He may want to recheck a u/a depending on how you are doing. Return to ED if you feel worse. Call your Physician or Return to Emergency Department if: * Your condition worsens in any way. * You develop fever greater than 100.4. * You have vomitting that does not stop with medications. * You have pain that is not controlled with medications. - My Orders Last 24 Hours: My Active Orders 04/02/17 15:27 Doxycycline [Vibramycin] 100 mg PO ONETIME ONE Phenazopyridine [Urinary Pain Relief] 95 mg PO TIDPC ONE - Assessment/Plan Last 24 Hours: My Active Orders 04/02/17 15:27 Doxycycline [Vibramycin] 100 mg PO ONETIME ONE Phenazopyridine [Urinary Pain Relief] 95 mg PO TIDPC ONE
[2017-04-02 15:47] VITALS: BP 126/82
== END 2017-04-02 15:52 | disposition home or self-care (01) ==
LOC: FB.ED 14:32
DX: N39.0 Urinary tract infection, site not specified (principal); R31.9 Hematuria, unspecified; K21.9 Gastro-esophageal reflux disease without esophagitis; M19.90 Unspecified osteoarthritis, unspecified site; E03.9 Hypothyroidism, unspecified; E66.9 Obesity, unspecified; F41.9 Anxiety disorder, unspecified; Z68.31 Body mass index [BMI] 31.0-31.9, adult; Z90.49 Acquired absence of other specified parts of digestive tract; Z90.710 Acquired absence of both cervix and uterus; Z90.89 Acquired absence of other organs; Z79.899 Other long term (current) drug therapy
CPT/HCPCS: 81001; 99283; A9270